=== PATIENT | male | born 1935 | race Caucasian/White ===

== ENCOUNTER → 2016-06-21 | Outpatient (CLI) | payer MEDICARE, BC ==
[~2016-06-21] MED LIST: ASPIRIN PO; ASPIRIN81 M1 PO; CALCIUM + D 6001 TA1 PO; CALCIUM + D PO; CALCIUM + VITAM1 TAB PO; CERTAGEN PO; FLOMAX0.4 M1 PO; GLUCOSAMINE CHRONDR PO; GLUCOSAMINE/CHO1 CA4 PO; LITHIUM CARBON450 MG PO; LITHIUM PO; LITHOBID SR300 MG PO; LOVENOX40 MG/0.4 INJ; NAMENDA10 MG PO; OSTEO BI-FLEX1 EAC1 PO; PERCOCET 5/321 UDTAB PO; PERCOCET5/325 PO; SULINDAC150 MG PO; VITAMIN D1000 UNI1 PO; WELLBUTRIN PO
--- NOTE | ~2016-06-21 | MR32 ---
[facility] A Service of [facility] RADIOLOGY TEXT RESULTS PATIENT: KARON CLARKE JR LOCATION: [facility] : 33 UNIT #: [id number] AGE: [address]: Jah Salinas MD SEX: M ORDER DR: [id number] [place] [id number] O MR#: [id number] Acc #: [id number] NAME: KARON CLARKE : 1935 SEX: M STUDY DATE/TIME: 06/21/2016 8:53 UNIT: [facility] ROOM: STUDY DESCRIPTION: MR Cervical Wo Contrast Attending Physician: Jah Salinas M.D. Referring Physician: Jah Salinas M.D. Ordering Physician: Jah Salinas M.D. Primary Care Physician: Jah Salinas M.D. MRI CENTER REPORT This report is preliminary unless electronic signature is present. EXAM MRI of the cervical spine without contrast HISTORY Increased neck pain, limited range of motion, favors right side recently 4-5 months, more in the past 3-4 weeks. No history of cancer, surgery or injury. COMMENT MRI of the cervical spine was performed without contrast using routine 1.5T wide-bore imaging technique. There is about 2 mm degenerative anterolisthesis of C7 on T1 secondary to facet arthritis. Multiple-level endplate spondylosis most prominent at C4-5 through C6-7, with multiple-level disc desiccation and severe loss of intervertebral disc height C4-5, C5-6, C6-7. The cervical cord is normal in size and signal intensity, and there is no Chiari I malformation. There is also about 4-5 mm of degenerative-appearing anterolisthesis of T1 on T2 seen on sagittal imaging secondary to facet arthritis. There is multiple-level marrow endplate degenerative change, predominantly type III. C2-3, there is moderate right, mild left side facet arthritis. There is no canal stenosis. There is approximately moderate right-sided foraminal narrowing. At C3-4, there is mild left and moderate to severe left-sided facet arthritis. There is concentric desiccated disc-osteophyte complex, mild but worse posteriorly, and there is very mild cord flattening and canal stenosis. There is severe aioqh-khxcceo-hlio-left sided foraminal impingement. At C4-5, there is bilateral facet arthritis, probably moderate, with STS. [facility] A Service of [facility] & [facility] RADIOLOGY TEXT RESULTS PATIENT: KARON CLARKE JR LOCATION: [facility] : 34 UNIT #: [id number] AGE: [address]: Jah Salinas MD SEX: M ORDER DR: concentric desiccated disc-osteophyte complex worse anteriorly. There is mild to moderate cord flattening and canal compromise worse to the left side, with severe rpgh-[id number]-[id number]-right sided foraminal impingement. There is uncovertebral osteophyte formation bilaterally. At C5-6, bilateral facet degenerative change is approximately moderate to severe with concentric desiccated disc-osteophyte complex and uncovertebral osteophyte formation bilaterally. There is mild cord flattening and canal stenosis and severe bilateral foraminal impingement. At C6-7, mild to moderate bilateral facet degenerative change with concentric desiccated disc-osteophyte complex and uncovertebral osteophyte formation worse to the left. There is very mild cord flattening and canal stenosis. There is mild to moderate right and moderate to severe left-sided foraminal impingement. At C7-T1, there is no canal stenosis. There is left-sided foraminal impingement, moderate to severe/mild to moderate right side foraminal impingement. The foramina are abnormally horizontally oriented with the anterolisthesis of C7 on T1. At T1-2 on sagittal imaging, there is posterior disc protrusion in association with the anterolisthesis of T1 on T2, and there is severe bilateral facet arthritis and likely foraminal impingement worse to the left. IMPRESSION 1. Significant multiple-level cervical degenerative change, details provided above. Multiple-level canal stenosis and foraminal compromise. The canal stenosis is most prominent at C4-5, where it is estimated to be mild to moderate, worse to the left of midline. Foraminal impingement is severe at multiple levels. Additionally, there is degenerative anterolisthesis of C7 on T1 and T1 on T2 secondary to severe facet arthritis. Please refer to the [id number] description of findings. Cord signal intensity is still normal. Dictated by... Marisa Mcfarland M.D. THIS IS AN ELECTRONICALLY VERIFIED REPORT Marisa Mcfarland M.D. at 06/22/2016 2:25 PM SAC/psc TD: 06/21/2016 21:35 [facility] A Service of [facility] RADIOLOGY TEXT RESULTS PATIENT: KARON CLARKE JR LOCATION: [facility] : 34 UNIT #: [id number] AGE: [address]: Jah Salinas MD SEX: M ORDER DR: KEYON #: [id number] MRI CENTER REPORT Page 1 of 1
== END | disposition home or self-care (01) ==
LOC: SMRI 08:20
DX: M54.2 Cervicalgia (principal); M47.812 Spondylosis without myelopathy or radiculopathy, cervical region; M48.02 Spinal stenosis, cervical region; M43.13 Spondylolisthesis, cervicothoracic region; M43.14 Spondylolisthesis, thoracic region; M46.92 Unspecified inflammatory spondylopathy, cervical region
CPT/HCPCS: 72141